=== PATIENT | female | born 1990 | race Caucasian/White ===

== ENCOUNTER 2023-07-28 22:12 | Emergency (ER) | payer OTHER, SELFPAY ==
--- NOTE | ~2023-07-28 | CT_ITS ---
EXAMINATION: CT ANGIOGRAM OF THE CHEST WITH AND WITHOUT CONTRAST (CT PULMONARY ANGIOGRAM FOR PE) CLINICAL INFORMATION: Reason for Exam Shortness of breath, tachycardia, history DVT COMPARISON: None available. TECHNIQUE: Prior to contrast administration, noncontrast localization images were obtained. Subsequently, multidetector volumetric imaging was performed from the thoracic inlet to below the diaphragms following the administration of 65 mL Omnipaque 350 intravenous contrast. No contrast reaction reported Sagittal, coronal, and MIP oblique sagittal reformatted images were obtained on the CT workstation, uploaded to PACS, and reviewed. This CT examination was performed using dose optimization techniques as appropriate, variously including the following: *Automated exposure control *Adjustment of mA and/or kV according to patient size (this includes techniques or standardized protocols for targeted exams where dose is matched to indication/reason for exam; i.e. extremities or head) *Use of iterative reconstruction technique Total exam dose-length product 279 mGy-cm FINDINGS: QUALITY OF STUDY/CONTRAST BOLUS: Satisfactory. PULMONARY ARTERIES: No pulmonary emboli. THORACIC AORTA: No aneurysm. LUNG: No focal consolidation, nodules or masses. PLEURA: No pleural effusion or pneumothorax. MEDIASTINUM: Normal heart size. No pericardial effusion. No hilar or mediastinal lymphadenopathy. No evidence of septal bowing or right heart strain. CORONARY ARTERY CALCIFICATION: None visualized on this study. CHEST WALL/AXILLA: No axillary or internal mammary lymphadenopathy. OSSEOUS STRUCTURES: No acute or suspicious osseous abnormality. UPPER ABDOMEN: Unremarkable. No reflux of contrast into the hepatic veins to suggest elevated right heart pressures. CT/CT angio chest PE protocol IMPRESSION: Normal CT of the chest. No evidence of pulmonary embolism. VTE: negative.
--- NOTE | 2023-07-28 22:14 | ECG_ITS ---
Test Reason : CHEST PAIN Blood Pressure : / mmHG Vent. Rate : 096 BPM Atrial Rate : 096 BPM P-R Int : 172 ms QRS Dur : 098 ms QT Int : 372 ms P-R-T Axes : 069 000 059 degrees QTc Int : 469 ms Normal sinus rhythm Possible Left atrial enlargement Incomplete right bundle branch block Borderline ECG No previous ECGs available Referred By: Generic ED Physician Electronically Signed By:CHAN PLASENCIA
[2023-07-28 22:17] VITALS: BP 157/95; PULSE 113; RESP 18; TEMP 36.8; O2SAT 98; BMI 29.1
--- NOTE | 2023-07-28 22:42 | ED_ITS ---
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 Comes in with chest pain started at approximately 19:00 while she was in the theater watching movie, she was noted to be tachycardic and states that her right arm was hurting with tingling fingers and denies any history of panic attacks or anxiety. She is not on any chronic anticoagulation and has an IUD in place. Related Data Allergies Allergy/AdvReac Type Severity Reaction Status Date / Time No Known Allergies Allergy Verified 07/28/23 22:16 Review of Systems 2 Review of Systems: Pertinent positives and negatives as stated in HPI PMFSH Past Medical History Source: nursing notes reviewed Social History Social History Advance Directives: No Advance Directives Information Provided: No Physical Exam 2 Vital Signs: Vital Signs: Last Vital Signs Temp 98.3 F 07/28/23 22:17 Pulse 71 07/29/23 02:00 Resp 14 07/29/23 02:00 BP 125/82 07/29/23 02:00 Pulse Ox 99 07/29/23 02:00 O2 Del Method Room Air 07/29/23 02:00 BMI result Body Mass Index 29.1 VITAL SIGNS: Reviewed. GENERAL: Well developed, well nourished, in no acute distress. HEAD: Normocephalic/atraumatic EYES: PERRLA, EOMI EARS: Ext canals without abnormality NOSE: Nares patent bilateral OROPHARYNX: no oral lesions noted, posterior pharynx clear NECK: Supple, no adenopathy LUNGS: Normal breath sounds. No adventitious sounds or accessory muscle use. SpO2<98> CARDIOVASCULAR: Tachycardic rate and rhythm without noted murmurs ABDOMEN: Soft, non-tender, non-distended with bowel sounds. MUSCULOSKELETAL: No tenderness, deformities, or effusions noted on gross inspection. EXTREMITIES: No cyanosis, clubbing or edema. SKIN: Inspection of the skin reveals no rashes NEUROLOGIC: Alert and oriented x 4. Strength and sensation to light touch were grossly intact x 4. Medications Administered Discontinued Medications Generic Name Dose Route Start Last Admin Trade Name Vamsi PRN Reason Stop Dose Admin Iohexol 65 ml 07/29/23 01:11 07/29/23 01:12 Iohexol 350 Mg/Ml 100 Ml Infus..Btl IV 07/29/23 01:12 65 ml ONCE ONE Administration Ondansetron HCl 4 mg 07/28/23 23:50 07/28/23 23:58 Ondansetron Hcl 4 Mg/2 Ml Vial IVPUSH 07/28/23 23:51 4 mg ONCE ONE Administration Medical Decision Making Medical Decision Making [facility] Narrative: 43-year-old female with history and clinical presentation, DDX: Highly suspicious for PE and will proceed with CT angio PE protocol after obtaining hCG, viral illness, anxiety/panic attack felt to be a possibility Reviewed all investigations and hematologic indices demonstrates a very mild leukocytosis lateral left shift and otherwise no anemia or thrombocytopenia. D-dimer-[address] angio negative for VTE or pneumonia. Chemistry indices grossly within normal limits without evidence of PLACIDO or electrolytes/liver enzyme derangements, high sensitivity troponin is undetectable. There are no acute changes on EKG. Viral testing is noted to be negative for COVID-19 and influenza. My interpretation is that patient may have encountered an anxiety/panic attack, her heart rate has completely resolved there is no evidence to suggest infection/anemia, there is no VTE and D-dimer is unlikely to represent any DVT. Patient was reassured and instructed to follow-up with primary care doctor. Differential Diagnosis Differential Diagnoses: The differential diagnosis associated with the presentation includes Please see the discussion above Admission/Observation Consideration of admission/observation: Escalation of care including admission/observation considered Please see the discussion above Lab Data [facility] Lab Attestation statement: I reviewed the patient's lab results. Please see the discussion above 07/28/23 22:42 07/28/23 22:42 Labs: Lab Results 07/28/23 07/28/23 07/29/23 Range/Units 22:42 22:44 01:18 WBC 11.9 H (4.8-10.8) X10*3/uL RBC 5.20 (4.20-5.50) X10*6/uL Hgb 15.5 (12.0-16.0) g/dl Hct 44.0 (37.0-47.0) % MCV 84.6 (80.0-98.0) fL MCH 29.8 (27.0-33.0) pg MCHC 35.2 H (31.0-35.0) g/dl RDW 12.6 (11.0-16.0) % Plt Count 294 (160-400) X10*3/uL MPV 11.0 (9.4-12.3) fL Immature Gran % (Auto) 0.5 H (0.0-0.4) % Neut % (Auto) 58.9 (45-73) % Lymph % (Auto) 32.7 (20-40) % Randall % (Auto) 6.3 (2-11) % Eos % (Auto) 1.1 (0-4) % Baso % (Auto) 0.5 (0-2) % Lymph # (Auto) 3.9 (1.2-4.9) X10*3/uL Randall # (Auto) 0.8 (0.1-1.2) X10*3/uL Eos # (Auto) 0.1 (0.0-0.4) X10*3/uL Baso # (Auto) 0.1 (0.0-0.2) X10*3/uL Abs Immat Gran (auto) 0.06 H (0.00-0.03) X10*3/uL Absolute Neuts (auto) 7.0 (2.0-8.3) x10*3/uL Absolute Nucleated RBC 0.000 (0.0-0.012) X10*3/uL Nucleated RBC % (auto) 0.0 (0.0-0.2) /100WBC PT 11.0 L (11.1-13.3) SEC INR 0.9 (0.9-1.1) D-Dimer High Sensitivty 156 NG/ML Sodium 139 (135-145) mmol/L Potassium 3.9 (3.3-5.1) mmol/L Chloride 106 (96-108) mmol/L Carbon Dioxide 21 L (22-29) mmol/L Anion Gap 16 (12-20) BUN 12 (9-16) mg/dL Creatinine 0.75 (0.5-1.4) mg/dL Estim Creat Clear Calc 100.6 Estimated GFR > 60 Random Glucose 126 H (60-115) mg/dL Calcium 9.0 (8.4-10.2) mg/dL Total Bilirubin 0.2 (0.0-1.0) mg/dL AST 21 (5-31) U/L ALT 22 (0-31) U/L Alkaline Phosphatase 70 (39-117) U/L Troponin I High Sens < 2.7 (<3.5-17.0) ng/L Total Protein 7.8 (6.5-8.0) g/dL Albumin 4.4 (3.5-5.0) g/dL Beta HCG, Quant < 2 mIU/mL COVID-19 (KELVIN) Negative (Negative) COVID-19 Clin Com See Note Influenza Type A (BRANDON) Negative (Negative) Influenza Type B (BRANDON) Negative (Negative) Influenza A & B Note See Note Independent Interpretation I performed an independent interpretation of an: EKG Interpretation: No EKG for comparison, normal sinus rhythm, HR-96, no STEMI, noted incomplete right bundle branch block, MI/QRS/QTC is within normal limits. Radiology Impression Discussion of test interpretation with radiology: I have reviewed the radiologist's reading. Radiologist Impression: Please see the discussion above Critical Care Time Critical Care Time Critical Care Time: Yes Total Critical Care Time: 60 Attestation: I personally attest to this time spent taking care of the patient. Discharge Plan Discharge Clinical Impression: Panic attack, Anxiety Patient Disposition: Home, Self-Care Instructions: Anxiety (ED), Panic Attack (ED) Additional Instructions: 1. Your workup today was negative for any life-threatening contribution to your presentation. I suspect there may have been a component of anxiety and panic attack involved. 2. I strongly recommend that you follow-up with your primary care doctor for further outpatient evaluation. Return to the ER for any worsening symptoms. Referrals: Ok Ceron MD [Primary Care Provider] -
[2023-07-28 22:48] LABS: MANUAL DIFF FLAG NO
[2023-07-28 22:49] LABS: Basophils Absolute Auto 0.1 X10*3/uL (0.0-0.2); Basophils Percent Auto 0.5 % (0-2); Eosinophils Absolute Auto 0.1 X10*3/uL (0.0-0.4); Eosinophils Percent Auto 1.1 % (0-4); Hemoglobin 15.5 g/dl (12.0-16.0); Imm Gran Abs Auto 0.06 X10*3/uL (0.00-0.03); Imm Gran Pct Auto 0.5 % (0.0-0.4); Lymphocytes Absolute Auto 3.9 X10*3/uL (1.2-4.9); Lymphocytes Percent Auto 32.7 % (20-40); Mean Corpuscular HGB Conc 35.2 g/dl (31.0-35.0); Mean Corpuscular Hemoglobin 29.8 pg (27.0-33.0); Mean Corpuscular Volume 84.6 fL (80.0-98.0); Monocytes Absolute Auto 0.8 X10*3/uL (0.1-1.2); Monocytes Percent Auto 6.3 % (2-11); Neutrophils Percent Auto 58.9 % (45-73); Platelet Count 294 X10*3/uL (160-400); Red Cell Distribution Width 12.6 % (11.0-16.0); White Blood Count 11.9 X10*3/uL (4.8-10.8)
[2023-07-28 22:58] LABS: D Dimer High Sensitivity 156 NG/ML
[2023-07-28 23:07] LABS: Alanine Aminotransferase 22 U/L (0-31); Albumin Level 4.4 g/dL (3.5-5.0); Alkaline Phosphatase 70 U/L (39-117); Anion Gap 16 (12-20); Aspartate Amino Transferase 21 U/L (5-31); Bilirubin Total 0.2 mg/dL (0.0-1.0); Blood Urea Nitrogen 12 mg/dL (9-16); Carbon Dioxide 21 mmol/L (22-29); Chloride 106 mmol/L (96-108); Creatinine Clr Calc Pharmacy 100.6; Estimated Glomerular Filt Rate > 60; Glucose Random 126 mg/dL (60-115); Potassium 3.9 mmol/L (3.3-5.1); Sodium 139 mmol/L (135-145); Total Protein 7.8 g/dL (6.5-8.0)
[2023-07-28 23:14] LABS: Troponin-I High Sensitivity < 2.7 ng/L (<3.5-17.0)
[2023-07-28 23:29] LABS: INTERNATIONAL NORM RATIO 0.9 (0.9-1.1)
[2023-07-28 23:53] VITALS: BP 115/70; PULSE 90; RESP 15; O2SAT 98
[2023-07-28] MEDS: ondansetron HCL 4 MG/2 ML VIAL IVPUSH (23:58)
[2023-07-29 00:52] LABS: HCG Quantitative < 2 mIU/mL
[2023-07-29] MEDS: iohexoL 350 MG/ML 100 ML INFUS..BTL 65 ML IV (01:12)
[2023-07-29 01:46] LABS: COVID-19 Test Negative (Negative); IDNOW Serial# 08D9AD1C
[2023-07-29 01:47] LABS: IDNOW Serial# BCCEAD1C; Influenza A Negative (Negative); Influenza B2 Negative (Negative)
[2023-07-29 02:00] VITALS: BP 125/82; PULSE 71; RESP 14; O2SAT 99
== END 2023-07-29 03:09 | disposition home or self-care (01) ==
PROVIDERS: Emergency Provider Student in an Organized Health Care Education/Training Program; PCP Internal Medicine
DX: F41.0 Panic disorder [episodic paroxysmal anxiety] (principal); I82.502 Chronic embolism and thrombosis of unspecified deep veins of left lower extremity; Z11.52 Encounter for screening for COVID-19
CPT/HCPCS: 36415; 71275; 80053; 84484; 84702; 85025; 85379; 85610; 87502; 87635; 93005; 96374; 99284; J2405; Q9967

== ENCOUNTER → 2023-07-28 22:14 | Outpatient (BNV) | payer OTHER, SELFPAY | PROVIDERS: Emergency Provider Student in an Organized Health Care Education/Training Program; PCP Internal Medicine; Visit Provider Internal Medicine | DX: R07.9 Chest pain, unspecified (principal) | CPT/HCPCS: 93010 ==